=== PATIENT | male | born 1970 | race Caucasian/White ===

== ENCOUNTER 2020-05-29 08:16 | Emergency (ER) | payer OTHER ==
[~2020-05-29] VITALS: Ht 182.9 cm; Wt 77.1 kg
[~2020-05-29 08:16] MED LIST: IBUPROFEN 200200 M1 PO; NORCO 5-325 TA1 EACH PO; PHYSICAL THERAPY; TORADOL 10 MG T10 MG PO; VALIUM5 MG PO
[2020-05-29 08:53] LABS: CALCIUM 8.6 mg/dL (8.5-10.1); CREATININE 0.9 mg/dL (0.6-1.3); POTASSIUM 3.9 mmol/L (3.5-5.1)
[2020-05-29 09:57] LABS: URINE BILIRUBIN NEGATIVE (Negative); URINE BLOOD NEGATIVE (Negative); URINE CLARITY CLEAR; URINE COLOR YELLOW; URINE GLUCOSE-RANDOM NEGATIVE (Negative); URINE KETONES NEGATIVE (Negative); URINE LEUKOCYTES-REFLEX NEGATIVE (Negative); URINE NITRITE-REFLEX NEGATIVE (Negative); URINE PROTEIN NEGATIVE (Negative); URINE UROBILINOGEN 0.2 E.U./dl (0.2-1.0)
[2020-05-29] MEDS ORDERED: IBUPROFEN 800800 M1 PO (10:06)
[2020-05-29] MEDS ORDERED: NORCO 5-325 TA1 EAC2 PO (10:06)
[2020-05-29] MEDS ORDERED: FLEXERIL PO (10:06)
[2020-05-29 10:22] VITALS: BP 110/68
== END 2020-05-29 10:23 | disposition home or self-care (01) ==
LOC: M.ERS 08:16
PROVIDERS: Emergency Medicine Emergency Medical Services
DX: M54.5 Low back pain (principal); F17.210 Nicotine dependence, cigarettes, uncomplicated

== ENCOUNTER 2020-06-19 17:34 | Emergency (ER) | payer OTHER ==
[~2020-06-19] VITALS: Ht 182.9 cm; Wt 81.7 kg
[~2020-06-19 17:34] MED LIST changes: +FLEXERIL PO; +IBUPROFEN 800800 M1 PO; +NORCO 5-325 TA1 EAC2 PO
[2020-06-19 18:19] VITALS: BP 124/70
== END 2020-06-19 18:19 | disposition home or self-care (01) ==
LOC: M.ERS 17:34
DX: U07.1 COVID-19 (principal); F17.210 Nicotine dependence, cigarettes, uncomplicated